=== PATIENT | female | born 1980 | race Caucasian/White ===

== ENCOUNTER 2018-05-29 14:25 | Emergency (ER) | payer OTHER ==
[~2018-05-29] VITALS: Ht 152.4 cm; Wt 54.4 kg
[2018-05-29 15:04] LABS: ABSOLUTE BASOPHILS 0.1 thou/uL (0.0-0.2); ABSOLUTE EOSINOPHILS 0.1 thou/uL (0.0-0.7); ABSOLUTE LYMPHOCYTES 4.9 thou/uL (0.8-5.3); ABSOLUTE MONOCYTES 1.5 thou/uL (0.0-1.2); ABSOLUTE NEUTROPHILS 9.7 thou/uL (1.6-8.1); BASOPHILS 0.8 %; EOSINOPHILS 0.7 %; HEMATOCRIT 41.4 % (37.0-47.0); LYMPHOCYTES 30.1 %; MCH 31.8 pg (26.0-34.0); MCHC 33.7 g/dL (28.0-37.0); MCV 94.2 fL (80.0-100.0); MONOCYTES 8.9 %; MPV 7.1 fl. (7.2-11.1); NUCLEATED RBCS 0 /100WBC; PLATELET COUNT* 280 thou/uL (150-400); POLYS 59.5 %; RDW-CV 13.1 % (10.5-14.5); WBC 16.4 thou/uL (4.0-11.0)
[2018-05-29 15:16] LABS: ANION GAP 13 mmol/L (7-16); BUN 14 mg/dL (7-18); CHLORIDE 100 mmol/L (98-107); CO2 26 mmol/L (21-32); CREATININE 0.8 mg/dL (0.6-1.3); POTASSIUM 3.7 mmol/L (3.5-5.1); SODIUM 139 mmol/L (136-145)
[2018-05-29 15:23] LABS: ALBUMIN 3.8 g/dL (3.4-5.0); ALKALINE PHOSPHATASE 49 U/L (46-116); GLUCOSE 108 mg/dL (70-99); SGOT 15 U/L (15-37); SGPT 22 U/L (30-65); TOTAL BILIRUBIN 0.3 mg/dL (<0.1-1.0); TOTAL PROTEIN 7.4 g/dL (6.4-8.2); TROPONIN-I LEVEL <0.06 ng/mL (<0.06)
[2018-05-29] MEDS ORDERED: ZOFRAN ODT4 MG PO (16:25)
[2018-05-29 16:34] VITALS: BP 111/63
[2018-05-29 16:40] LABS: URINE BILIRUBIN NEGATIVE (Negative); URINE BLOOD NEGATIVE (Negative); URINE CLARITY CLEAR; URINE COLOR YELLOW; URINE GLUCOSE-RANDOM NEGATIVE (Negative); URINE KETONES 1+ (Negative); URINE LEUKOCYTES-REFLEX NEGATIVE (Negative); URINE NITRITE-REFLEX NEGATIVE (Negative); URINE PROTEIN NEGATIVE (Negative); URINE SPECIFIC GRAVITY >= 1.030 (1.005-1.030); URINE UROBILINOGEN 0.2 E.U./dl (0.2-1.0)
[2018-05-29 16:46] LABS: AMP/METHAMP Negative (Negative); BARBITURATES Negative (Negative); BENZODIAZEPINES Negative (Negative); COCAINE Negative (Negative); METHADONE Negative (Negative); OPIATES Negative (Negative); PCP Negative (Negative); THC POSITIVE (Negative)
== END 2018-05-29 17:38 | disposition home or self-care (01) ==
LOC: M.ERS 14:25
PROVIDERS: Physician Assistant
DX: R51 Headache (principal); R11.10 Vomiting, unspecified

== ENCOUNTER → 2018-06-10 | Outpatient (CLI) | payer OTHER ==
[~2018-06-10] MED LIST: ZOFRAN ODT4 MG PO
--- NOTE | ~2018-06-10 | EEG ---
[address] [address] EEG STUDY REPORT Name: VIVI SAAVEDRA Julio Cesar Room: [facility]#: [id number] Admission: 06/10/18 Attend Phys: Na Leigh, Discharge: Date of : 78 Report #: [id number] THIS REPORT FOR: //name// CC: Na Leigh DATE OF SERVICE: 06/10/2018 This patient is being evaluated for the possibility of seizure. EEG was done by placing the electrodes by standard 10-20 system of electrode placement. Both referential and sequential montages were used for recording. Background activity in this patient's EEG is about 10 Hz and 40 microvolts. This is a symmetrical activity. The patient goes to sleep that is associated with bilateral slowing and vertex sharp waves. Hyperventilation was carried out and during the hyperventilation, no abnormality was noticed. Photic stimulation was unremarkable. IMPRESSION: This patient's EEG is within normal limits. It does not show any active epileptiform activity. It might be mentioned that EEG can be normal in a patient with seizure disorder. Thank you very much for this referral. By: [id number] White MD /sharron
== END ==
LOC: M.CRD 13:36
DX: R51 Headache (principal); R56.9 Unspecified convulsions